=== PATIENT | female | born 1965 | race Caucasian/White ===

== ENCOUNTER → 2024-09-23 | Outpatient (CLI) | payer BC, SELFPAY ==
--- NOTE | 2024-09-23 | BRBX_PTH ---
PATIENT: KATHLEEN JORGENSEN LOC: [facility] U#:[id number] AGE/SX: 59/F ROOM: RE09/23/[address]: Dr. Castillo Sykes MD : [id number] BED: DIS: 09/23/2024 SPEC #: [id number] RECD: 09/23/24 08:51 STATUS: NIMA DANIA #: [id number] FRANCISCO: 09/23/24 00:[address]: Castillo Sykes DEPT: SURGICAL PATHOLOGY RECD BY: Carisa Chan ENTERED: 09/23/24 09:43 SP TYPE: BREAST BX OTHR DR: [place] Howe, TIMC Tissues: Left breast, NOS Procedures: Surgery Specimen Level IV HEADER OPERATION: Ultrasound guided needle core biopsy left breast PRE-OP DIAGNOSIS: Abnormal mammogram TISSUE SUBMITTED: Left breast tissue Ischemic Time: 1 minute Fixation Time: 11 hours MICROSCOPIC DIAGNOSIS Left breast mass, ultrasound guided core biopsy: Mild duct ectasia. No evidence of malignancy. AM. 09/24/2024 MICROSCOPIC DESCRIPTION Slides are reviewed. GROSS DESCRIPTION Received in fixative is one container labeled with the patient's name and designated Left breast tissue. The specimen consists of two cores of varner tissue. Each core has an average length of 2.0m and a maximal diameter of 0.2cm. The specimen is submitted in its entirety in one cassette. AM. 09/23/2024 TC:5 CPT:89280
== END | disposition home or self-care (01) ==
PROVIDERS: PCP Nurse Practitioner Family; Referring Provider Surgery; Visit Provider Surgery
DX: R92.8 Other abnormal and inconclusive findings on diagnostic imaging of breast (principal)
CPT/HCPCS: 88305